=== PATIENT | female | born 1970 | race Two or more races ===

== ENCOUNTER 2020-01-04 08:26 | Day surgery (SDC) | payer OTHER ==
[~2020-01-04 08:26] MED LIST: SYNTHROID150 MCG PO
== END 2020-01-04 16:00 | disposition home or self-care (01) ==
LOC: CIR.AMB 08:26
DX: M77.11 Lateral epicondylitis, right elbow (principal)

== ENCOUNTER 2020-04-11 08:12 | Day surgery (SDC) | payer OTHER ==
[~2020-04-11 08:12] MED LIST changes: +SYNTHROID137 MCG PO
== END 2020-04-11 15:20 | disposition home or self-care (01) ==
LOC: CIR.AMB 08:12
PROVIDERS: ATTEND Orthopaedic Surgery
DX: M77.12 Lateral epicondylitis, left elbow (principal); Z20.828 Contact with and (suspected) exposure to other viral communicable diseases